=== PATIENT | female | born 1950 | race Caucasian/White ===

== ENCOUNTER 2021-05-16 11:36 | Emergency (ER) | payer MEDICARE, SELFPAY ==
[2021-05-16 11:51] VITALS: BP 140/74; PULSE 59; RESP 18; TEMP 36.4; O2SAT 100
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
[2021-05-16] MEDS: TETANUS,DIPHTHERIA,AC PERTUSSIS ADULT (0.5 ML) BOOSTRIX IM (12:34)
== END 2021-05-16 13:01 | disposition home or self-care (01) ==
PROVIDERS: Emergency Provider Nurse Practitioner; PCP Physician Assistant
DX: T24.032A Burn of unspecified degree of left lower leg, initial encounter (principal); X16.XXXA Contact with hot heating appliances, radiators and pipes, initial encounter; Z23 Encounter for immunization
CPT/HCPCS: 90471; 90715; 99202; G0463